=== PATIENT | male | born 1970 | race Caucasian/White ===

== ENCOUNTER 2025-01-30 17:36 | Emergency (ER) | payer OTHER, SELFPAY ==
[2025-01-30 17:37] VITALS: BP 136/89; PULSE 87; RESP 20; TEMP 36.4; O2SAT 100
--- NOTE | 2025-01-30 18:31 | EDS_ITS ---
HPI History of Present Illness Chief Complaint: Flank Pain Informant: patient Onset/Context/Timing Onset: Today and Hours (3) Context: Sudden Onset Timing: Continuous Quality: Aching, sharp Location: Left flank and left lower quadrant Worsened by: Nothing Relieved by: Analgesics Narrative Narrative: Patient presents with drop below left flank pain that has been getting worse over the past 3 hours. Patient states it began rather suddenly. Patient states that it is her left lower quadrant and left flank area. Patient describes it as aching and sharp. Patient states it is constant. Patient states he took a pain pill prior to arrival which helped. Patient states nothing makes it worse. Patient states he has a history of kidney stones and states this feels similar to prior kidney stones. Prior similar symptoms: Yes PFSH PFSH Medical History (Updated 01/30/25 @ 19:[address] Sergio Bradford, ) Kidney stones Home Medications ?Medication ?Instructions ?Recorded ?Last Taken ?Type hydrocodone-acetaminophen 5-325mg 1 tab PO Q6H PRN PRN Pain 3 days 01/30/25 Unknown Rx 5mg-325mg #10 TABLETS tamsulosin 0.4 mg capsule 0.4 mg PO DAILY #7 CAPSULES 01/30/25 Unknown Rx Allergy/AdvReac Type Severity Reaction Status Date / Time ondansetron (From Zofran) AdvReac Intermediate Vomiting Verified 01/30/25 17:42 oxycodone AdvReac Intermediate Vomiting Verified 01/30/25 17:42 Surgical History (Updated 01/30/25 @ 18:[address] Sergio Bradford DO) Hx of surgical amputation of finger Social History Smoking Status: Never smoker ROS ROS ED Constitutional Constitutional ED: Denies chills or fever(s) Eyes Eyes: Denies blurry vision or change in vision ENT ENT ED: Denies rhinorrhea or sore throat Cardiovascular Cardiovascular: Denies chest pain or palpitations Respiratory/Chest Respiratory/Chest: Denies cough or dyspnea Gastrointestinal Gastrointestinal: Reports abdominal pain; Denies nausea or vomiting Genitourinary Genitourinary ED: Denies dysuria or hematuria Musculoskeletal Musculoskeletal: Reports back pain; Denies neck pain Integumentary Denies abscess or rash Neurologic Neurologic: Denies headache(s) or weakness Allergic/Immunologic Allergic/Immunologic ED: Denies mouth swelling or urticaria EXAM Physical Exam Const Vital Signs: 01/30/25 17:37 01/30/25 18:37 Temperature 97.5 F L Temperature Source Oral Pulse Rate 87 99 Respiratory Rate 20 H 18 Blood Pressure 136/89 H 142/88 H Blood Pressure Mean 104 106 Pulse Ox 100 95 Oxygen Delivery Method Room Air Room Air Positive well nourished and well developed General Appearance ED: well developed and NAD HEENT Reports moist mucous membranes Neck supple and no JVD Resp normal respiratory effort and clear to auscultation bilaterally Cardio regular rate and regular rhythm GI non-distended Palpation: soft and tender LLQ (Mild); Negative for guarding or rebound tenderness present Back/Spine General Back: CVA tenderness left Neuro oriented x3, CN's II-XII intact bilaterally and no sensory deficits noted Sensorium / Orientation: alert Motor Exam: strength 5/5 throughout Psych mental status grossly normal MDM MDM MDM Narrative Medical decision making narrative: Differential diagnosis includes ureteral calculus, pyelonephritis, diverticulitis, colitis, and urinary tract infection. CBC will be obtained to assess for leukocytosis or anemia. Basic metabolic profile will be obtained to assess for electrolyte abnormality and renal function. Urinalysis will be obtained to assess for urinary tract infection and hematuria. CT scan of the abdomen pelvis will be obtained to assess for ureteral calculus and pyelonephritis. History & Record Review Additional record(s) reviewed:: No prior records Lab Data Attestation: I reviewed the patient's lab results. Lab results narrative: CBC was reviewed and was within normal limits. Urinalysis was reviewed. There is no evidence of urinary tract infection or hematuria. Basic metabolic profile was reviewed. BUN was 23 and creatinine was slightly elevated at 1.31. The remainder was within normal limits. Labs: Laboratory Results - last 24 hr 01/30/25 01/30/25 18:36 18:37 WBC 7.6 RBC 4.22 L Hgb 12.8 L Hct 36.3 L MCV 86.0 MCH 30.3 MCHC 35.3 RDW Std Deviation 39.3 RDW Coeff of [place] 12.7 Plt Count 306 MPV 9.4 Immature Gran % (Auto) 1.100 H Neut % (Auto) 70.1 H Lymph % (Auto) 19.2 [place] % (Auto) 8.3 Eos % (Auto) 0.5 Baso % (Auto) 0.8 Absolute Neuts (auto) 5.3 Absolute Lymphs (auto) 1.45 Nucleated RBC % 0 Sodium 141 Potassium 4.2 Chloride 106 Carbon Dioxide 23.7 Anion Gap 12 BUN 23 H Creatinine 1.31 H Est GFR (MDRD) Non-Af 63 BUN/Creatinine Ratio 17.3 Glucose 139 H Calcium 10.1 Urine Color Yellow Urine Clarity Sl. Cloudy Urine pH 6.0 Ur Specific [place] 1.030 Urine Protein 30 H Urine Glucose (UA) Normal Urine Ketones 5 H Urine Occult Blood Negative Urine Nitrite Negative Urine Bilirubin Negative Urine Urobilinogen Normal Ur Leukocyte Esterase Negative Urine RBC 0-5 SEEN Urine WBC 0 SEEN Ur Squamous Epith Cells 0 SEEN Urine Bacteria 0 SEEN Urine Mucus 1+ Radiography Diagnostic Testing: Clinical Impression(s) from Imaging Studies Abdomen/Pelvis CT 01/30/25 18:43 IMPRESSION: Obstructive 4 mm stone in the distal left ureter, with associated mild left hydroureteronephrosis and perinephric edema. No additional urinary tract calculi identified. Reading Location: [facility] CT scan of the abdomen and pelvis was obtained. There is a 4 mm calculus in the left distal ureter with hydronephrosis and hydroureter. There is there is no other abnormality noted. This was interpreted by the radiologist as also independently reviewed by myself. Treatment and Re-Evaluation :: Patient was given IV fluids and Toradol. Patient had some improvement of his pain with this. Patient was given a dose of morphine and Reglan. Patient was instructed to look into fluids. Patient has a prescription for short course of [place] and a prescription for Flomax. Patient was instructed to follow-up with his primary care physician in 5 to 7 days. Patient understood and was agreeable with the plan. All questions were answered. Discharge Plan Triage Chief Complaint: Flank Pain ED Provider: Sergio Bradford Dx/Rx/DC Orders Clinical Impression: Calculus of distal left ureter, Elevated blood pressure reading Instructions: ED Kidney Stone with Pain Prescriptions: New hydrocodone-acetaminophen 5-325 mg tablet 1 tab PO Q6H PRN PRN (Reason: Pain) 3 Days Qty: 10 0RF tamsulosin 0.4 mg capsule 0.4 mg PO DAILY Qty: 7 0RF Primary Care Provider: Care Physician,No Primary Referrals: Zoltan Luna MD [Med Staff - Active Staff] - 3-5 Days Care Physician,No Primary [Primary Care Provider] - Print Language: Colombian Disposition Disposition: Home, Self Care
[2025-01-30 18:37] VITALS: BP 142/88; PULSE 99; RESP 18; O2SAT 95
[2025-01-30] MEDS: 0.9% Normal Saline (1000mL) 1,000 ML 1000 ML IV (18:38)
--- NOTE | 2025-01-30 18:43 | CT_ITS ---
PROCEDURE: CT ABDOMEN/PELVIS WITHOUT CONT 01/30/2025 REASON FOR EXAM: LEFT FLANK PAIN TECHNIQUE: CT ABDOMEN/PELVIS WITHOUT CONT Noncontrast technique limits evaluation of the abdominal and pelvic viscera. Coronal and Sagittal reconstruction series were provided. One or more dose reduction techniques were used (e.g., Automated exposure control, adjustment of the mA and/or kV according to patient size, use of iterative reconstruction technique). RADIATION DOSE SUMMARY: CTDlvol: 6.9 mGy DLP: 372.52 mGycm COMPARISON: None. FINDINGS: Lung bases: Clear. Liver: Unremarkable. Gallbladder: Unremarkable. Spleen: Unremarkable. Pancreas: Unremarkable. Adrenals: Unremarkable. Kidneys: There is a 4 mm obstructing calculus in the distal left ureter just proximal to the ureterovesicular junction. Associated upstream mild left hydroureteronephrosis, and perinephric edema. No additional urinary tract calculi identified. No hydronephrosis on the right. Bladder: Collapsed. No stone within the bladder is seen. Reproductive Organs: Unremarkable, nonenlarged prostate. Bowel: Unremarkable. No obstruction or active inflammation. Normal appendix. Lymph nodes: No suspicious lymph node enlargement. Vasculature: Abdominal aorta is normal in course and caliber. Peritoneum / Retroperitoneum: No ascites or free air. Musculoskeletal: Small fat containing left inguinal hernia. Unremarkable osseous structures. CT/Abdomen/Pelvis without Cont IMPRESSION: Obstructive 4 mm stone in the distal left ureter, with associated mild left hyd roureteronephrosis and perinephric edema. No additional urinary tract calculi identified. Reading Location: [id number]
[2025-01-30 18:49] LABS: Squamous Epithelial Cells - UA 0 SEEN /hpf (0-5)
[2025-01-30 18:53] LABS: Hematocrit 36.3 % (40-54); Hemoglobin 12.8 g/dL (13.0-16.5); Immature Granulocytes Count 0.080 X10^3/uL (0.0-0.0); Mean Corp Hgb Conc 35.3 g/dL (32-36); Mean Corpuscular Volume 86.0 fL (80-94); Mean Platelet Vol. 9.4 fl (6.2-12.0); NRBC Flagged by Analyzer 0 % (0-5); Platelet Count 306 K/mm3 (150-450); RBC Distribution Width CV 12.7 % (11.6-14.6); RBC Distribution Width SD 39.3 fl (35.1-43.9); Red Blood Count 4.22 M/mm3 (4.6-6.2); White Blood Count 7.6 K/mm3 (4.4-11.0)
[2025-01-30 18:58] LABS: Color, Urine Yellow (Yellow); Glucose, Dipstick Normal (Normal); Ketone-Dipstick 5 mg/dl (Negative); Leukocyte Esterase-Dipstick Negative /ul (Negative); Nitrite-Dipstick Negative (Negative); Occult Blood-Urine Negative /ul (Negative); Protein-Dipstick 30 mg/dl (Negative); Specific Gravity, Urine 1.030 (1.002-1.030); Urine Bilirubin Dipstick Negative (Negative)
[2025-01-30 19:20] LABS: Mucous, Urine 1+ /hpf (<or=2+); Red Blood Cells-Urine 0-5 SEEN /hpf (0-5)
[2025-01-30 19:35] LABS: Anion Gap 12 (5-15); BUN 23 mg/dL (4-19); BUN/Creat Ratio 17.3 RATIO (10-20); Calcium,Total 10.1 mg/dL (7.6-11.0); Carbon Dioxide 23.7 mmol/L (21.0-32.0); Chloride 106 mmol/L (98-108); Glucose 139 mg/dL (70-99); Potassium 4.2 mmol/L (3.3-5.1)
[2025-01-30 20:31] VITALS: BP 145/78; PULSE 68; RESP 18; TEMP 36.6; O2SAT 99
== END 2025-01-30 20:34 | disposition home or self-care (01) ==
PROVIDERS: Emergency Provider Emergency Medicine; Visit Provider Emergency Medicine
DX: N13.2 Hydronephrosis with renal and ureteral calculous obstruction (principal); R03.0 Elevated blood-pressure reading, without diagnosis of hypertension; R10.9 Unspecified abdominal pain
CPT/HCPCS: 74176; 80048; 81001; 85025; 96361; 96374; 96375; 99283; A4216